=== PATIENT | male | born 1940 | race Caucasian/White ===

== ENCOUNTER → 2019-01-06 | Outpatient (CLI) | payer OTHER, MEDICARE ==
[~2019-01-06] MED LIST: ACETAMINOPHEN-1 EAC1; AGGRENOX CAPSU1 EACH; AGGRENOX CAPSU1 EACH PO; AMITRIPTYLINE; AMITRIPTYLINE100 MG PO; ASPIRIN81 M2 PO; CLEOCIN HCL300 MG PO; DEPAKOTE125 MG; DIPYRIDAMOLE PO; DOXYCYCLINE 10100 MG PO; HYDROCODON-ACE1 EACH PO; NAPROSYN500 MG PO; NORVASC2.5 MG PO; TRIAMTERENE-HC1 EAC1; ZOFRAN4 MG PO
== END ==
LOC: M.RAD 15:47
DX: M43.16 Spondylolisthesis, lumbar region (principal); M47.816 Spondylosis without myelopathy or radiculopathy, lumbar region; Z88.8 Allergy status to other drugs, medicaments and biological substances; Z88.0 Allergy status to penicillin

== ENCOUNTER 2019-07-23 15:41 | Emergency (ER) | payer BC, MEDICARE ==
[~2019-07-23] VITALS: Ht 188 cm; Wt 70.3 kg
[2019-07-23] MEDS ORDERED: ELIQUIS5 MG PO (15:54)
[2019-07-23] MEDS ORDERED: KEFLEX500 M1 PO (16:02)
[2019-07-23 16:52] VITALS: BP 131/80
== END 2019-07-23 16:53 | disposition home or self-care (01) ==
LOC: M.ERS 15:41
DX: S61.412A Laceration without foreign body of left hand, initial encounter (principal); I10 Essential (primary) hypertension; Z86.73 Personal history of transient ischemic attack (TIA), and cerebral infarction without residual deficits; Z88.0 Allergy status to penicillin; W26.8XXA Contact with other sharp object(s), not elsewhere classified, initial encounter; Y93.89 Activity, other specified; Y92.89 Other specified places as the place of occurrence of the external cause; Y99.8 Other external cause status

== ENCOUNTER 2019-08-01 14:58 | Emergency (ER) | payer BC, MEDICARE ==
[~2019-08-01] VITALS: Ht 188 cm; Wt 70.3 kg
[~2019-08-01 14:58] MED LIST changes: +ELIQUIS5 MG PO; +KEFLEX500 M1 PO
[2019-08-01 15:50] VITALS: BP 140/87
== END 2019-08-01 15:50 | disposition home or self-care (01) ==
LOC: M.ERS 14:58
DX: S61.412D Laceration without foreign body of left hand, subsequent encounter (principal); I10 Essential (primary) hypertension; Z85.828 Personal history of other malignant neoplasm of skin; Z95.5 Presence of coronary angioplasty implant and graft; Z88.0 Allergy status to penicillin; X58.XXXD Exposure to other specified factors, subsequent encounter

== ENCOUNTER → 2020-09-28 | Outpatient (CLI) | payer BC, MEDICARE | LOC: M.RAD 14:57 | PROVIDERS: ATTEND Internal Medicine | DX: M51.34 Other intervertebral disc degeneration, thoracic region (principal); M51.36 Other intervertebral disc degeneration, lumbar region; I70.0 Atherosclerosis of aorta; M43.8X6 Other specified deforming dorsopathies, lumbar region ==